=== PATIENT | female | born 1950 | race Caucasian/White ===

== ENCOUNTER → 2023-01-31 11:31 | Outpatient (CLI) | payer MEDICARE, SELFPAY ==
--- NOTE | ~2023-01-31 | XR_ITS ---
EXAMINATION: SCOLIOSIS DATE: 01/31/2023 12:01 INDICATION: Thoracic back pain TECHNIQUE: Standing AP and lateral views of the thoracolumbar spine FINDINGS: There are 12 rib bearing thoracic vertebral bodies and 5 non-rib bearing lumbar type verteb ral bodies. There is no listhesis, compression deformity or vertebral body anomaly. There are 21 deg jayshree of thoracic dextroscoliosis measured from T5 through T9. There are 17 degrees of thoracic dextro scoliosis measured from T9 through T12. There are 36 degrees of thoracolumbar dextroscoliosis measure d from T12 through L3. There are changes of anterior fusion procedure from C3 through C5. There is se elena loss of intervertebral disc space height at C5-6 and C6-7. There is moderate loss of interverteb ral disc space height at multiple levels in the thoracic spine. There is mild to moderate loss of int ervertebral disc space height throughout the lumbar spine. No fracture is identified. 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 IMPRESSION: 1. Thoracic and lumbar scoliosis as described above. 2. Moderate to severe spondylosis of the spine. No acute findings. Reviewed, dictated and finalized at location B.
== END ==
PROVIDERS: PCP Family Medicine; Visit Provider Family Medicine
DX: R53.83 Other fatigue (principal); F32.0 Major depressive disorder, single episode, mild; F41.9 Anxiety disorder, unspecified; M54.6 Pain in thoracic spine; M47.894 Other spondylosis, thoracic region
CPT/HCPCS: 72082

== ENCOUNTER 2023-09-09 09:32 | Outpatient (CLI) | payer MEDICARE, SELFPAY ==
--- NOTE | 2023-09-09 09:45 | ECG_ITS ---
SEE SCANNED COPY FOR CONFIRMED REPORT MTDD
== END 2023-09-09 09:33 | disposition home or self-care (01) ==
LOC: ANHSURGERY 09:40
PROVIDERS: PCP Family Medicine; Visit Provider Urology
DX: I51.9 Heart disease, unspecified (principal)
CPT/HCPCS: 93005

== ENCOUNTER 2023-09-12 00:39 | Day surgery (SDC) | payer MEDICARE, SELFPAY ==
[2023-09-05 12:42] VITALS: BMI 28.7
--- NOTE | 2023-09-05 12:54 | PC.NURSE ---
Report to the Outpatient Waiting Room, entrance under the green pavilion located off [facility], at time _0600_ on date _[id number]_. Planned Procedure Time: _0730_. Time changes happen often and if your time is changed the preop area will call you the afternoon before. - You and your visitor will be asked to self-screen and do not enter if you have any COVID symptoms. - A mask is optional within the hospital at this time. Patients may have clear liquids (water, carbonated beverages, clear teas, apple juice) until 3 hours prior to surgery with a maximum of 20 ounces. - No food from midnight until time of surgery Take the following medications with a SIP of water the morning of surgery: __Metoprolol and Duloxetine DO NOT STOP ANY OF YOUR OTHER PRESCRIPTION MEDICATIONS PRIOR TO SURGERY ?EXCEPT THE FOLLOWING Medications to discontinue per physician ____Vitamin D3 Date to take last glvb___[id number] Please no make-up, nail arabic, hairspray, perfume, deodorant, or body powder the day of surgery. No jewelry (including any body piercings) or valuables the day of surgery, leave them at home. Please take a shower or bath the night before, or the morning of, surgery with an antibacterial soap. Wear comfortable, loose fitting clothing. - Jewelry must be removed prior to entering the operating room. Rings and piercings that are not removed may be cut off. - The hospital will not accept responsibility for valuables. - Please leave all valuables, including medications, at home the day of surgery. If you are going home after surgery, a licensed forklift driver must drive you home. - NO public transportation without another adult if you receive anesthesia. - We recommend that an adult stay with you for 24 hours following discharge. - We also recommend that you do not drive, make important decision, drink alcoholic beverages, or take any drugs that were not prescribed by your health care provider for at least 24 hours after your discharge time. Follow any additional instructions given to you from your surgeon. If you or anyone in your household have experienced Covid symptoms in the past week, please notify your surgeon or the nurse liaison at the phone number below for possible testing. Telephone instructions given to __Donna___and asked if any additional questions and then verbalized understanding. Patient advised to call surgeon office or pre surgery nurse liaison [phone] if any additional questions.
--- NOTE | 2023-09-07 20:56 | PM.IMHP ---
H&P: HPI History of Present Illness Date/Time: 09/07/23 20:56 Chief Complaint: POP/NICOLE Narrative: bothersome prolapse and NICOLE on urodynamics previous POP surgery in the past Review of Systems Review of Systems: All systems reviewed & are unremarkable except as noted in HPI and below PMFSH Family History Family History Father Alcoholism Hypertension Heart disease Mother Cancer Depression Sibling Cancer Depression Other Depression Grandparent Cerebrovascular accident Social History Social History Smoking status: Never smoker Alcohol intake: current Lack of Transportation: No Lack of Food: Never True Current Housing: I Have Housing Concerned About Future Housing: No Difficulty Paying Gas/Electric Bills: No Difficulty Paying for Meds: No Currently Unemployed: No Education: High School Diploma/GED Difficulty w/ Childcare or Family Care: No Living arrangements: with family Spiritual care concerns: No Meds Home Medications and Allergies Home Medications Medication Instructions Recorded Confirmed Type alprazolam 0.25 mg tablet 0.25 mg PO QHS PRN Sleep 12/12/22 09/05/23 History atorvastatin 20 mg tablet 20 mg PO DAILY 12/12/22 09/05/23 History cholecalciferol (vitamin D3) 25 25 mcg PO DAILY 12/12/22 09/05/23 History mcg (1,000 unit) capsule ibuprofen 200 mg tablet 200 mg PO Q6H PRN Insomnia 12/12/22 09/05/23 History losartan 50 mg tablet 50 mg PO DAILY 12/12/22 09/05/23 History metoprolol succinate 25 mg 12.5 mg PO DAILY 12/12/22 09/05/23 History tablet,extended release 24 hr pantoprazole 40 mg tablet,delayed 40 mg PO QAM 12/12/22 09/05/23 History release duloxetine 60 mg capsule,delayed 60 mg PO DAILY 09/05/23 09/05/23 History release Allergies Allergy/AdvReac Type Severity Reaction Status Date / Time lisinopril Allergy Intermediate cough Verified 09/05/23 12:39 Exam Narrative: NAD normal breathing + urehtral mobility anterior wall-min pop posterior wall to introitus Assessment and Plan Assessment and plan (1) Cystocele with rectocele: Code(s): N81.10 - Cystocele, unspecified; N81.6 - Rectocele Status: Acute (2) NICOLE (stress urinary incontinence, female): Code(s): N39.3 - Stress incontinence (female) (male) Status: Acute Plan recocele repar, poss cystocele repair, sling
[2023-09-12] VITALS (8 sets, daily range): BP systolic 114–148; BP diastolic 51–91; PULSE 58–89; RESP 14–16; TEMP 36.1; O2SAT 96–100
--- NOTE | 2023-09-12 04:50 | WPDHPUPDATE1 ---
History and Physical Update Update Date/Time: 09/12/23 04:50 History and Physical has been reviewed, including an updated exam of the patient. There are NO changes in the patient's condition. Risks, benefits, and alternatives have been discussed and questions answered. Patient agrees to proceed with procedure.
--- NOTE | 2023-09-12 07:15 | WPDANESEPPF ---
Anes - Initial Pre Proc Eval Procedure: Operation Date: 09/12/23 07:30 Proposed Procedures p Cystocele and Rectocele Repair, - Gabriel Reyes MD s Possible Urethral Sling - Gabriel Reyes MD Date/Time: 09/12/23 07:15 Surgeon: Gabriel Reyes MD Pre Op Diagnosis: stress incont, cystocele, rectocele Patient Data Age: 72 Gender: F Height: 1.55 m Weight: 69.5 kg Last Vital Signs Temp 36.1 C L 09/12/23 06:20 Pulse 58 L 09/12/23 06:20 Resp 16 09/12/23 06:20 BP 120/51 L 09/12/23 06:20 Pulse Ox 99 09/12/23 06:20 O2 Del Method Room Air 09/12/23 06:20 Allergies Allergy/AdvReac Type Severity Reaction Status Date / Time lisinopril Allergy Intermediate cough Verified 09/05/23 12:39 Home Medications Medication Instructions Recorded Confirmed Type alprazolam 0.25 mg tablet 0.25 mg PO QHS PRN Sleep 12/12/22 09/05/23 History atorvastatin 20 mg tablet 20 mg PO DAILY 12/12/22 09/05/23 History cholecalciferol (vitamin D3) 25 25 mcg PO DAILY 12/12/22 09/05/23 History mcg (1,000 unit) capsule ibuprofen 200 mg tablet 200 mg PO Q6H PRN Insomnia 12/12/22 09/05/23 History losartan 50 mg tablet 50 mg PO DAILY 12/12/22 09/05/23 History metoprolol succinate 25 mg 12.5 mg PO DAILY 12/12/22 09/05/23 History tablet,extended release 24 hr pantoprazole 40 mg tablet,delayed 40 mg PO QAM 12/12/22 09/05/23 History release duloxetine 60 mg capsule,delayed 60 mg PO DAILY 09/05/23 09/05/23 History release Patient hx anesthesia problems: none Family hx anesthesia problems: none Results Review: All pre-operative results and documents have been reviewed as part of the pre-operative evaluation. [facility] Family History Family History Father Alcoholism Hypertension Heart disease Mother Cancer Depression Sibling Cancer Depression Other Depression Grandparent Cerebrovascular accident Social History Social History Smoking status: Never smoker Alcohol intake: current Lack of Transportation: No Lack of Food: Never True Current Housing: I Have Housing Concerned About Future Housing: No Difficulty Paying Gas/Electric Bills: No Difficulty Paying for Meds: No Currently Unemployed: No Education: High School Diploma/GED Difficulty w/ Childcare or Family Care: No Living arrangements: with family Spiritual care concerns: No Anes - Eval Final PreProcedure Day of Procedure 09/12/23 07:15 Patient weight: overweight Heart: regular rate and rhythm and murmur Lungs: clear to auscultation Airway: Mallampati scale class II Neurological: alert and oriented Last oral intake: >/= 8 hours ASA classification: III Emergent: no Anesthetic plan: proceed Anesthesia type and monitoring: general LMA and standard monitoring Results Review: All pre-operative results and documents have been reviewed as part of the pre-operative evaluation. Informed Consent: The patient's anesthetic plan and its attendant risks and benefits were discussed with the patient/family/POA. Questions were solicited and answers provided to the satisfaction of the patient/family/POA.
[2023-09-12] MEDS: LACTATED RINGERS 1,000 ML 30 ML IV CONT ×2 (07:18→08:45)
[2023-09-12] MEDS: ceFAZolin 2 GM/D5W 50 ML 2 GM/50 ML BAG IVPB (07:30)
[2023-09-12] MEDS: BUPIVACAINE/EPINEPHRINE 0.5% 10 ML VIAL 30 ML INFILTRATE (07:57)
--- NOTE | 2023-09-12 08:43 | W.PM.PROC2 ---
Procedure Note - Detailed Date of Procedure 09/12/23 Pre-op Diagnosis Rectocele, stress incontinence Post-op Diagnosis Same Procedure Performed Rectocele repair mid urethral sling cystoscopy Surgeon Gabriel Reyes MD Anesthesia General Indications This is a female with confirm stress urinary incontinence and a symptomatic prolapse.. She desires surgical correction. She understands the risks of bleeding, infection, injury to the urinary tract, vaginal mesh extrusion, urinary tract mesh erosion, obstructive voiding requiring a secondary procedure, hip and leg pain, dyspareunia, inability to improve overactive bladder symptoms, injury to the bowels, recurrence of prolapse, dyspareunia. She agrees to proceed. Findings Rectocele to the introitus Urethral mobility Description of Procedure She was correctly identified. Informed consent obtained. She was brought the operating room. She was given appropriate anesthesia. She was given appropriate perioperative antibiotics. A time-out performed. I placed a [place] catheter. I placed a [place] retractor. Examination revealed minimal cystocele. She had rectocele to the introitus. I grasped the rectocele with Allis clamps. I infiltrated subcutaneous tissues with local mixed with epinephrine. I made a midline vaginal incision. I dissected out laterally and towards the apex taking great care not to injure underlying rectum or other organs. Once the dissection was done and performed a standard plication rectocele repair. I did this with serial interrupted 0 Vicryl sutures. Once the rectocele was reduced I trimmed excess vaginal mucosa. I closed the vaginal mucosa with a running 2-0 Vicryl suture. There was excellent reduction of the rectocele with no undue narrowing of the vagina. Again, there was no significant cystocele I marked out the site of the inner thigh incisions. I anesthetized the skin and made those incisions. I anesthetized the anterior vaginal wall over the mid urethra. I made a 1 cm incision. I dissected out laterally taking great care not to injure the refilled vaginal wall. I passed the helical trocars. First on the left. Then on the right. I did this from the thigh incision towards the vaginal incision. The sling was connected to the trocars and brought out through the thigh incision. I tensioned the sling appropriately. I cut and the plastic sheaths. I then closed the incision with 2 0 Vicryl. On cystoscopy there is no tumors or surgical artifact. There was no surgical artifact in the urethra. I cut the excess sling material. Close incisions with glue. Rectal exam was normal. She was awakened and transferred to the PACU in stable condition. Implants Urethral sling Estimated Blood Loss 20 Drains No Packing No Pathology None sent Complications No immediate complications Condition Stable Disposition PACU
[2023-09-12] MEDS: oxyCODONE HCL (*CRX) 2.5 MG TAB IR PO (09:18)
--- NOTE | 2023-09-12 10:14 | SUR.PHASEII ---
1010: Patient ready for DC. Waiting on ride.
== END 2023-09-12 10:25 | disposition home or self-care (01) ==
PROVIDERS: PCP Family Medicine; Visit Provider Urology
PROC: (CPT 57260; principal; 2023-09-12 07:30)
DX: N81.6 Rectocele (principal); N39.3 Stress incontinence (female) (male)
CPT/HCPCS: 57250; 57288; A9270; C1771; J0690; J1100; J2371; J2405; J2704; J3010; J7030; J7120; Q9968